=== PATIENT | female | born 1995 | race Caucasian/White ===

== ENCOUNTER 2024-11-10 07:53 | Emergency (ER) | payer OTHER, SELFPAY ==
[2024-11-10 07:59] VITALS: BP 159/95; PULSE 108; TEMP 37; O2SAT 98; BMI 53.2
[2024-11-10 08:37] LABS: Influenza Virus A Antigen Negative; Influenza Virus B Antigen Negative; Internal Control Within Normal Limits
[2024-11-10 08:38] LABS: SARS-CoV-2 Ag POSITIVE (NEGATIVE)
--- NOTE | 2024-11-10 09:04 | XR_ITS ---
The [address] [address] Patient Name: TESSIE VASQUEZ MRN: [id number] date: 1995 Sex: F Assigned Patient Location: ER Current Patient Location: ED.MAIN Accession/Order Number: [id number] Exam Date: 11/10/2024 08:58 Report Date: 11/10/2024 09:15 At the request of: AARON BALDWIN Procedure: XR chest 1V EXAM: XR chest 1V HISTORY: cough COMPARISON: None. TECHNIQUE: AP erect portable chest radiograph performed. FINDINGS: The trachea is midline. The cardiomediastinal silhouette and hilar shadows are within normal limits. There is no consolidation, pleural effusion or pulmonary vascular congestion. There is no pneumothorax. The osseous structures are unremarkable. XR/XR chest 1V IMPRESSION: Unremarkable AP erect portable chest radiograph. Electronically authenticated by: NELLIE CABRERA Date: 11/10/2024 09:15
--- NOTE | 2024-11-10 09:27 | ED.URI1 ---
HPI - URI/Sore Throat General Chief Complaint: Upper Respiratory Infection Stated Complaint: URTI COMPLAINTS Time Seen by Provider: 11/10/24 07:58 Source: patient Limitations: no limitations History of Present Illness HPI Narrative: Patient presents to ED complaining of cough and some mild wheezing. She said she has not felt well for a couple of days. She works at [employer] and said that she has been exposed to a lot of illnesses recently. She said she has been exposed to flu and COVID and other things. She denies any nausea vomiting. She does report a mild sore throat and sinus congestion. No fever here today but she has had some chills and bodyaches at home. She said when she lays down at night the coughing is much worse and she can hear some rattling in her chest. She is alert and oriented vital signs stable mildly tachycardic not hypoxic. She does have a history of asthma and it seems to have flared up slightly due to this sickness. Related Data Previous Rx's ?Medication ?Instructions ?Recorded albuterol sulfate 90 mcg/actuation 1 inh inhalation Q6H PRN shortness 11/10/24 aerosol inhaler of breath or wheezing #8.5 grams hydrocodone-homatropine 5 mg-1.5 5 ml PO Q6H PRN cough #60 mL 11/10/24 mg/5 mL (5 mL) oral syrup (Hycodan) Allergies Allergy/AdvReac Type Severity Reaction Status Date / Time Sulfa (Sulfonamide Allergy Unknown Verified 11/10/24 08:03 Antibiotics) Review of Systems ROS Status of ROS 10 or more systems reviewed and unremarkable except as noted in history and below PFSH PFSH Social History Little interest or pleasure in doing things: not at all Feeling down, depressed, or hopeless: not at all Exam Narrative Exam Narrative: General: alert, no acute distress Cardiovascular: regular rate and rhythm, normal peripheral perfusion. Respiratory: Lungs CTA, respirations non labored. Extremities: no deformity, no trauma. Neurological: oriented x 4, LOC appropriate for age. Constitutional Vital Signs, click to edit/add: Last Vital Signs Temp 98.6 F 11/10/24 07:59 Pulse 108 H 11/10/24 07:59 Resp 20 11/10/24 07:59 BP 159/95 H 11/10/24 07:59 Pulse Ox 98 11/10/24 07:59 O2 Del Method Room Air 11/10/24 07:59 Course Vital Signs Vital signs: Vital Signs Temperature 98.6 F 11/10/24 07:59 Pulse Rate 108 H 11/10/24 07:59 Respiratory Rate 20 11/10/24 07:59 Blood Pressure 159/95 H 11/10/24 07:59 Pulse Oximetry 98 11/10/24 07:59 Oxygen Delivery Method Room Air 11/10/24 07:59 Temperature 98.6 F 11/10/24 07:59 Pulse Rate 108 H 11/10/24 07:59 Respiratory Rate 20 11/10/24 07:59 Blood Pressure 159/95 H 11/10/24 07:59 Pulse Oximetry 98 11/10/24 07:59 Oxygen Delivery Method Room Air 11/10/24 07:59 MDM - URI/Sore Throat MDM Narrative Medical decision making narrative: Patient is COVID-positive. Patient has a normal chest x-ray. Patient will be sent home with albuterol and Hycodan cough syrup. Return to ED if worsening symptoms otherwise follow-up with family doctor as needed. Patient comfortable care plan for home. Differential Diagnosis Differential diagnosis: Likely upper respiratory infection, sinusitis, viral infection, bronchitis and influenza Lab Data Attestation: I reviewed the patient's lab results. Labs: Lab Results 11/10/24 Range/Units 08:03 Influenza Type A Ag Negative Influenza Type B Ag Negative SARS-CoV-2 Ag (CV2AG) Positive A (NEGATIVE) Imaging Data Chest x-ray: Radiologist's impression: ITS Impressions Chest X-Ray 11/10/24 09:04 IMPRESSION: Unremarkable AP erect portable chest radiograph. Electronically authenticated by: NELLIE CABRERA Date: 11/10/2024 09:15 Discharge Plan Discharge Chief Complaint: Upper Respiratory Infection Clinical Impression: COVID-19 Patient Disposition: Home, Self-Care Time of Disposition Decision: 09:10 Condition: Good Mode of Transportation: Private Vehicle Prescriptions / Home Meds: New albuterol sulfate 90 mcg/actuation HFA aerosol inhaler 1 inh inhalation Q6H PRN (Reason: shortness of breath or wheezing) Qty: 8.5 0RF hydrocodone-homatropine [Hycodan] 5-1.5 mg/5 mL (5 mL) syrup 5 ml PO Q6H PRN (Reason: cough) Qty: 60 0RF Print Language: Singaporean Instructions: COVID-19 (Coronavirus Disease 2019) (ED) Referrals: Physician,Non-Staff, MD [Primary Care Provider] - 1 week
== END 2024-11-10 09:27 | disposition home or self-care (01) ==
PROVIDERS: Emergency Provider Emergency Medicine
DX: U07.1 COVID-19 (principal); J45.909 Unspecified asthma, uncomplicated
CPT/HCPCS: 71045; 87804; 87811; 99284